=== PATIENT | male | born 1975 | race Asian ===

== ENCOUNTER 2018-02-14 19:43 | Emergency (ER) | payer OTHER ==
[~2018-02-14] VITALS: Ht 180.3 cm; Wt 74.8 kg
[~2018-02-14 19:43] MED LIST: ALPR1TAB2 PO
[2018-02-14 19:49] VITALS: BP 120/75
--- NOTE | 2018-02-14 19:50 | NUR ---
PATIENT AMBULATED TO ER BED 2.
--- NOTE | 2018-02-14 19:52 | NUR ---
PATIENT IS A 42 Y/O MALE WHO PRESENTS TO THE ED C/O FEVER. PT STATES THAT HE HAS BEEN FEELING SICK FOR 10 DAYS. PT REPORTS 10/10 ACHING CHEST PAIN THAT DOES NOT RADIATE. NOTED NON-PRODUCTIVE COUGH, DENIES SOB, N/V/D. PT AAOX4, RR EVEN/UNLABORED. PT REPOSITIONED FOR COMFORT, BED IN LOWEST POSITION. ER MD DR. FAIRBANKS NOTIFIED. WILL CONTINUE TO MONITOR.
[2018-02-14] MEDS ORDERED: ACETAMINOPHEN EXTRA STRENGTH 500 MG TAB PO ONE (19:55)
[2018-02-14] MEDS ORDERED: ACETAMINOPHEN EXTRA STRENGTH 500 MG TAB ONE (19:56)
--- NOTE | 2018-02-14 20:00 | NUR ---
COLLECTED FLU SWAB SAMPLE AND SENT TO LAB.
[2018-02-14] MEDS ORDERED: KETOROLAC 30 MG/ML VIAL IM ONE (21:30)
[2018-02-14] MEDS ORDERED: IBUPROFEN 800 MG TAB ONE (21:41)
--- NOTE | 2018-02-14 21:46 | NUR ---
PO MEDS GIVEN FOR FEVER-NADR AT THIS TIME
--- NOTE | 2018-02-14 22:05 | NUR ---
PATIENT RESTING AT THIS TIME. FAMILY AT BEDSIDE.
[2018-02-14] MEDS ORDERED: IBUPROFEN 800 MG TAB PO ONE (22:15)
[2018-02-14] MEDS ORDERED: NACL 0.9% 2,500 ML IV ONE (22:42)
[2018-02-14 23:58] LABS: HEMATOCRIT 35.6 % (36-52); HEMOGLOBIN 11.8 g/dL (12.0-18.0); MEAN CORPUSCULAR HEMOGLOBIN 28 pg (27-31); MEAN CORPUSCULAR HGB CONC 33 g/dL (33-37); MEAN CORPUSCULAR VOLUME 83.9 fL (80-94); PLATELET COUNT (AUTO) 114 K/uL (140-450); RED BLOOD CELL COUNT(AUTO) 4.25 MIL/uL (4.20-6.10); RED CELL DISTRIBUTION WIDTH 13.5 % (11.6-13.7); WHITE BLOOD COUNT (AUTO) 3.6 K/uL (4.8-10.8)
[2018-02-15] LABS: APPEARANCE,URINE CLEAR (CLEAR); BILIRUBIN,URINE 1+ (NEGATIVE); BLOOD, URINE 2+ (NEGATIVE); COLOR,URINE YELLOW (YELLOW); LEUKOCYTE ESTERASE ,URINE NEGATIVE (NEGATIVE); NITRITE, URINE NEGATIVE (NEGATIVE); UGLUCOSE NEGATIVE (NEGATIVE)
--- NOTE | 2018-02-15 | NUR ---
PATIENT RESTING AT THIS TIME. FAMILY AT BEDSIDE.
[2018-02-15 00:01] LABS: ANION GAP 13.8 (8-16); CREATININE 0.8 mg/dL (0.7-1.3); POTASSIUM 3.8 mmol/L (3.5-5.1)
[2018-02-15 00:07] LABS: ALBUMIN 2.6 g/dL (3.4-5.0); TOTAL BILIRUBIN 0.3 mg/dL (0.0-1.0)
[2018-02-15 00:16] LABS: EOSINOPHILS % (MANUAL) 1 % (0-4); LYMPHOCYTES % (MANUAL) 31 % (20-46); MONOCYTES % (MANUAL) 9 % (5-12)
[2018-02-15 00:19] LABS: PROTHROMBIN TIME 12.1 secs (10.8-13.4)
[2018-02-15 00:28] LABS: RBC,URINE 3-10 (FEW) /HPF (0-5); WBC,URINE 0-5 (RARE) /HPF (0-5)
[2018-02-15] MEDS ORDERED: cefTRIAXone 1,000 MG in LIDOCAINE MPF 1% - **ER/OR** 2.1 ML IM ONE (01:00)
[2018-02-15 01:19] VITALS: BP 100/72
--- NOTE | 2018-02-15 01:19 | NUR ---
Patient discharged with v/s stable. Written and verbal after care instructions given and explained. Patient alert, oriented and verbalized understanding of instructions. Ambulatory with steady gait. All questions addressed prior to discharge. ID band removed. Patient advised to follow up with PMD. Rx of NAPROSYN 500MG, AZITHROMYCIN 250MG AND ACETAMINOPHEN 500MG given. Patient educated on indication of medication including possible reaction and side effects. Opportunity to ask questions provided and answered.
== END 2018-02-15 01:19 | disposition home or self-care (01) ==
LOC: MED 19:43
DX: J20.9 Acute bronchitis, unspecified (principal); R50.9 Fever, unspecified; E11.9 Type 2 diabetes mellitus without complications; Z79.899 Other long term (current) drug therapy
CPT/HCPCS: 36415; 71045; 80053; 81001; 83605; 83690; 85025; 85610; 87040; 87086; 87804; 96360; 96361; 96372; 99285; J0696; J1885; J2001; J7030; 93005

== ENCOUNTER 2018-09-12 12:17 | Inpatient (IN) | payer OTHER ==
[~2018-09-12] VITALS: Ht 180.3 cm; Wt 74.4 kg
[2018-09-12 12:20] VITALS: BP 127/70
--- NOTE | 2018-09-12 12:25 | NUR ---
PT AMBULATES TO BED 8
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
[2018-09-12] MEDS ORDERED: HYDROcodone/APAP 5/325 MG 1 TAB TAB PO ONE (13:15)
[2018-09-12] MEDS ORDERED: ONDANSETRON 4 MG ODT PO ONE (13:15)
[2018-09-12] MEDS ORDERED: KETOROLAC 60 MG/2 ML VIAL IM ONE (13:15)
[2018-09-12] MEDS ORDERED: ACETAMINOPHEN EXTRA STRENGTH 500 MG TAB PO ONE (13:40)
[2018-09-12] MEDS ORDERED: MORPHINE SULFATE 4 MG/ML SYR IVP ONE (14:15)
[2018-09-12] MEDS ORDERED: NACL 0.9% 1,000 ML IV ONE (14:15)
[2018-09-12 14:57] LABS: HEMOGLOBIN 13.6 g/dL (12.0-18.0); MEAN CORPUSCULAR HEMOGLOBIN 28 pg (27-31); MEAN CORPUSCULAR HGB CONC 33 g/dL (33-37); MEAN CORPUSCULAR VOLUME 85.1 fL (80-94); PLATELET COUNT (AUTO) 206 K/uL (140-450); RED BLOOD CELL COUNT(AUTO) 4.82 MIL/uL (4.20-6.10); RED CELL DISTRIBUTION WIDTH 13.2 % (11.6-13.7); WHITE BLOOD COUNT (AUTO) 17.6 K/uL (4.8-10.8)
[2018-09-12 15:16] LABS: EOSINOPHILS % (MANUAL) 2 % (0-4); LYMPHOCYTES % (MANUAL) 8 % (20-46); MONOCYTES % (MANUAL) 5 % (5-12)
[2018-09-12 15:21] LABS: ANION GAP 13.2 (8-16); CARBON DIOXIDE 27.7 mmol/L (21-32); CREATININE 0.9 mg/dL (0.7-1.3); POTASSIUM 3.9 mmol/L (3.5-5.1)
[2018-09-12 15:27] LABS: ALBUMIN 3.5 g/dL (3.4-5.0); TOTAL BILIRUBIN 0.4 mg/dL (0.0-1.0)
--- NOTE | 2018-09-12 15:47 | NUR ---
PT TAKEN TO CT IN NAD[place]
--- NOTE | 2018-09-12 16:01 | NUR ---
pt returned from ct via gurney accompanied by radiology. returned to rm 8 without incident.
--- NOTE | 2018-09-12 17:00 | NUR ---
er md irwin by bedside performing lumbar puncture; patient tolerating well
[2018-09-12] MEDS ORDERED: cefTRIAXone 1,000 MG VIAL ONE (17:24)
--- NOTE | 2018-09-12 17:45 | NUR ---
IV ABX INFUSING WITHOUT DIFFICULTLY; AWIAITING LAB RESULTS; VSS; WILL CONTINUE TO MONITOR.
[2018-09-12 18:15] LABS: CSF GLUCOSE 75 mg/dL (40-70)
[2018-09-12 18:26] LABS: CSF PROTEIN 57.7 mg/dL (15-45)
[2018-09-12] MEDS ORDERED: KETOROLAC 30 MG/ML VIAL IVP ONE (18:45)
[2018-09-12 19:31] VITALS: BP 127/69
--- NOTE | 2018-09-12 19:31 | NUR ---
RECEIVED PT FROM ER NANCY ZUNIGA PT ALERT, OX 4 WITH IVF ON THE LEFT HAND, INFUSING WELL, PATENT.TELE PT. PT NO COMPLAINTS HEADACHE AT THIS TIME. BED AT LOWEST POSITION. POC REVIEWED WITH PT. CALL LIGHT WITHIN REACH. WILL CONTINUE TO MIGUE
--- NOTE | 2018-09-12 19:45 | NUR ---
Patient will be admitted to care of DR. ADAMES. Admited to TELE. Will go to room 120A. Belongings list completed. Report to LESLIE JACKSON.
[2018-09-12 19:59] LABS: APPEARANCE,URINE CLEAR (CLEAR); COLOR,URINE YELLOW (YELLOW)
[2018-09-12 20:00] LABS: BILIRUBIN,URINE NEGATIVE (NEGATIVE); BLOOD, URINE NEGATIVE (NEGATIVE); PH,URINE 7.5 (5.0-9.0); UGLUCOSE NEGATIVE (NEGATIVE)
[2018-09-12 20:01] LABS: LEUKOCYTE ESTERASE ,URINE NEGATIVE (NEGATIVE); NITRITE, URINE NEGATIVE (NEGATIVE)
[2018-09-12] MEDS ORDERED: KETOROLAC 15 MG/ML VIAL IVP PRN (22:05)
[2018-09-12] MEDS ORDERED: ONDANSETRON 4 MG/5 ML ORASYR PO PRN (22:05)
[2018-09-12] MEDS ORDERED: ACETAMINOPHEN 325 MG TAB PO PRN (22:25)
[2018-09-12] MEDS ORDERED: KETOROLAC 15 MG/ML VIAL ONE (22:29)
--- NOTE | 2018-09-12 22:29 | NUR ---
DR. VILLANUEVA AWARE OF 08/20 HEADACHE VERBALIZED BY PATIENT. STILL ORDERED TORADOL 15 MG FOR MODERATE PAIN
[2018-09-12] MEDS ORDERED: ONDANSETRON 4 MG TAB PO PRN (22:45)
[2018-09-12] MEDS ORDERED: DOXYCYCLINE 100 MG in DEXTROSE 5% 100 ML IV SCH (23:00)
[2018-09-13] VITALS: BP 125/65
--- NOTE | 2018-09-13 01:56 | NUR ---
PT SLEEPING NOW. NOT IN RESPIRATORY DISTRESS. NO SIGNS OF PAIN AT THIS TIME.
--- NOTE | 2018-09-13 01:57 | NUR ---
PT ON BED SLEEPING, NO COMPLAINTS OF HEADACHE AT THIS TIME. NO COMPLAINTS OF NAUSEA , NO FEVER NOTED.NO VOMITING. WILL CONTINUE TO MONITOR
--- NOTE | 2018-09-13 02:00 | NUR ---
CALLED [facility]. ASK TELEGRAPHIC INSTRUMENT SUPERVISOR FOR A CALL BACK. STILL NO REPLY
[2018-09-13] MEDS: KETOROLAC 15 MG/ML VIAL IVP PRN ×3 (03:22→17:32)
[2018-09-13 04:00] VITALS: BP 126/65
--- NOTE | 2018-09-13 06:21 | NUR ---
CALLED [facility] TRUNKLINE AND VENDING MACHINE ASSEMBLER SAID DR. NAZARIO IS COMBUSTION ANALYST . NO DIET FOR PATIENT YET, WELL MAIN IVF. WILL ENDORSE TO THE AM SHIFT
[2018-09-13 07:00] LABS: BASOPHILS % (AUTO) 0.2 % (0.0-2.0); EOSINOPHILS # (AUTO) 0.1 K/uL (0-0.4); EOSINOPHILS % (AUTO) 0.5 % (0.0-4.0); HEMATOCRIT 41.9 % (36-52); HEMOGLOBIN 13.7 g/dL (12.0-18.0); LYMPHOCYTES # (AUTO) 2.4 K/uL (2.0-11.5); LYMPHOCYTES % (AUTO) 18.3 % (20.5-51.1); MEAN CORPUSCULAR HEMOGLOBIN 28 pg (27-31); MEAN CORPUSCULAR HGB CONC 33 g/dL (33-37); MEAN CORPUSCULAR VOLUME 86.1 fL (80-94); MONOCYTES # (AUTO) 0.9 K/uL (0.8-1.0); MONOCYTES % (AUTO) 7.2 % (1.7-9.3); NEUTROPHILS # (AUTO) 9.6 K/uL (1.8-7.7); NEUTROPHILS % (AUTO) 73.8 % (42.2-75.2); PLATELET COUNT (AUTO) 215 K/uL (140-450); RED BLOOD CELL COUNT(AUTO) 4.86 MIL/uL (4.20-6.10)
--- NOTE | 2018-09-13 07:25 | NUR ---
RECEIVED REPORT FROM PM SHIFT NURSE. PT AWAKE, C/O / HEADACHE. NOTED WITH IRRITABILITY, & FACIAL GRIMACING. INFORMED PT HE IS NOT YET DUE FOR TORADAL DOSE. ROOM KEPT DARK & QUIET FOR COMFORT. AT BEDSIDE. CALL LIGHT WITHIN REACH. DR ADAMES PAGEEmily & AWAITING CALL BACK.
[2018-09-13] MEDS ORDERED: MORPHINE SULFATE 4 MG/ML SYR IVP PRN (07:45)
--- NOTE | 2018-09-13 07:50 | NUR ---
ENDORSED TO AM SHIFT NURSE PT. PT C/O OF 08/20 PAIN DURING OUR ENDORSEMENT. AM SHIFT AWARE OF IVF FLUID AND DIET FOR WHICH HAS NOT CALLED BACK YET.
[2018-09-13 08:00] VITALS: BP 121/78
[2018-09-13 08:46] LABS: ANION GAP 14.8 (8-16); CARBON DIOXIDE 26.6 mmol/L (21-32); POTASSIUM 4.4 mmol/L (3.5-5.1)
[2018-09-13 08:47] LABS: ALBUMIN 3.1 g/dL (3.4-5.0); CREATININE 0.9 mg/dL (0.7-1.3); TOTAL BILIRUBIN 0.4 mg/dL (0.0-1.0)
--- NOTE | 2018-09-13 08:58 | NUR ---
ZOFRAN GIVEN FOR NAUSEA WITH X1 EPISODE OF SMALL AMT EMESIS, POST MORPHINE ADMINISTRATION. ICE CHIPS PROVIDED FOR COMFORT. ROOM KEPT DIM & QUIET. ADVISED BEDREST, PT VERBALIZED UNDERSTANDING. CALL LIGHT WITHIN REACH. AT BEDSIDE.
[2018-09-13] MEDS: NACL 0.9% 1,000 ML IV SCH ×2 (08:59→18:53)
[2018-09-13] MEDS: DOXYCYCLINE 100 MG in DEXTROSE 5% 100 ML IV SCH ×2 (09:32→21:08)
--- NOTE | 2018-09-13 09:58 | NUR ---
PT AWAKE BUT WITH EYES CLOSED. VERBALLY RESPONSIVE. NO C/O NAUSEA AT THIS TIME. ROOM KEPT DIM & QUIET. AT BEDSIDE. CALL LIGHT WITHIN REACH. LEFT WRIST IV INTACT & ASYMPTOMATIC.
--- NOTE | 2018-09-13 11:29 | NUR ---
PATIENT HAS BEEN SCREENED AND CATEGORIZED MODERATE NUTRITION RISK. PATIENT WILL BE SEEN WITHIN 3-5 DAYS OF ADMISSION. 09/15/18 09/17/18 ONESIMO VARGAS MBA, RD
[2018-09-13 12:00] VITALS: BP 107/72
--- NOTE | 2018-09-13 14:17 | NUR ---
PT SITTING UP IN BED AT THIS TIME. C/O 01/18 HEADACHE, BUT IS CURRENTLY TOLERABLE. CALL LIGHT WITHIN REACH. REMAINS AT BEDSIDE.
[2018-09-13] MEDS ORDERED: INSULIN LISPRO SLIDING SCALE 100 UNITS/ML VIAL SUBQ PRN (14:20)
[2018-09-13] MEDS ORDERED: ALPRAZolam 0.5 MG TAB PO PRN (14:25)
--- NOTE | 2018-09-13 14:45 | NUR ---
DR ADAMES AT BEDSIDE ASSESSING PT.
[2018-09-13 16:00] VITALS: BP 117/70
--- NOTE | 2018-09-13 16:00 | NUR ---
PT AWAKE, VERBALLY RESPONSIVE. STATES HE STILL HAS HEADACHE BUT IS CURRENTLY TOLERABLE. REFUSED PAIN MEDS WHEN OFFERED. AT BEDSIDE, ENCOURAGED TO MASSAGE PT'S HEAD LIGHTLY. PT & VERBALIZED AGREEMENT. ROOM KEPT DIM & QUIET. CALL LIGHT WITHIN REACH.
[2018-09-13] MEDS: BLOOD GLUCOSE MONITORING 1 DEV DEV FS SCH ×2 (16:14→20:57)
--- NOTE | 2018-09-13 18:02 | NUR ---
PT IN HIGH FOWLERS IN BED, STATES HEADACHE IS TOLERABLE AT THIS TIME. NO SIGNS OF DISTRESS. CALL LIGHT WITHIN REACH.
--- NOTE | 2018-09-13 19:05 | NUR ---
REPORT GIVEN TO PM SHIFT NURSE SUMMER.
--- NOTE | 2018-09-13 19:05 | NUR ---
RECEIVED BEDSIDE REPORT FROM MANUEL BLUM. PATIENT IN BED, FAMILY AT BEDSIDE, IV IN LEFT WRIST 20G INFUSING NS AT 100, DRESSING IS CLEAN AND INTACT. ALERT AND ORIENTATED X4, ABLE TO FOLLOW COMMANDS. BANDAGE APPLIED TO BACK, NO SIGNS OF LEAKAGE, UPDATED BOARD EXPLAINED PLAN OF CARE, WILL CONTINUE TO MONITOR.
[2018-09-13 20:00] VITALS: BP 110/75
--- NOTE | 2018-09-13 21:00 | NUR ---
DUE MEDICATION GIVEN PATIENT TOLERATED WELL, BG 200, D/C INSULIN COVERAGE. WILL CONTINUE TO MONITOR. V/S TAKEN ALL WITHIN BASELINE, DOES NOT PAIN PAIN MEDICATION AT THIS TIME FOR RILEY, WILL CONTINUE TO MONITOR.
--- NOTE | 2018-09-13 23:30 | NUR ---
PATIENT ASLEEP IN BED NO SIGNS OF DISTRESS, CALL LIGHT WITHIN REACH.
[2018-09-14] VITALS: BP 109/64
--- NOTE | 2018-09-14 00:30 | NUR ---
V/S TAKEN, ALL WITHIN BASELINE WILL CONTINUE TO MONITOR.
--- NOTE | 2018-09-14 03:30 | NUR ---
V/S TAKEN ALL WITHIN BASELINE WILL CONTINUE TO MONITOR.
[2018-09-14 04:00] VITALS: BP 111/60
[2018-09-14] MEDS: KETOROLAC 15 MG/ML VIAL IVP PRN (04:58)
--- NOTE | 2018-09-14 04:58 | NUR ---
PATIENT C/O PAIN 04/20, RILEY, IS IRRITATED, MEDICATED ACCORDING TO MD ORDER.
[2018-09-14] MEDS: NACL 0.9% 1,000 ML IV SCH ×3 (05:00→23:39)
[2018-09-14] MEDS: BLOOD GLUCOSE MONITORING 1 DEV DEV FS SCH ×4 (05:02→20:36)
[2018-09-14 07:14] LABS: BASOPHILS % (AUTO) 0.2 % (0.0-2.0); EOSINOPHILS # (AUTO) 0.1 K/uL (0-0.4); EOSINOPHILS % (AUTO) 1.1 % (0.0-4.0); HEMATOCRIT 38.3 % (36-52); HEMOGLOBIN 12.3 g/dL (12.0-18.0); LYMPHOCYTES % (AUTO) 23.6 % (20.5-51.1); MEAN CORPUSCULAR HEMOGLOBIN 28 pg (27-31); MEAN CORPUSCULAR HGB CONC 32 g/dL (33-37); MEAN CORPUSCULAR VOLUME 85.4 fL (80-94); MONOCYTES # (AUTO) 0.8 K/uL (0.8-1.0); MONOCYTES % (AUTO) 6.5 % (1.7-9.3); NEUTROPHILS # (AUTO) 8.6 K/uL (1.8-7.7); NEUTROPHILS % (AUTO) 68.6 % (42.2-75.2); PLATELET COUNT (AUTO) 241 K/uL (140-450); RED BLOOD CELL COUNT(AUTO) 4.48 MIL/uL (4.20-6.10); WHITE BLOOD COUNT (AUTO) 12.6 K/uL (4.8-10.8)
[2018-09-14 07:27] LABS: ALBUMIN 2.7 g/dL (3.4-5.0); ANION GAP 11.5 (8-16); CARBON DIOXIDE 28.6 mmol/L (21-32); CREATININE 0.9 mg/dL (0.7-1.3); POTASSIUM 4.1 mmol/L (3.5-5.1); TOTAL BILIRUBIN 0.3 mg/dL (0.0-1.0)
--- NOTE | 2018-09-14 07:32 | NUR ---
ENDORSED PATIENT TO DAY SHIFT NURSE PATIENT.
--- NOTE | 2018-09-14 07:33 | NUR ---
RECEIVED REPORT FROM PM SHIFT NURSE. PT AWAKE IN BED, DENIES ANY PAIN OR DISCOMFORT AT THIS TIME. LEFT WRIST IV INTACT & ASYMPTOMATIC. CALL LIGHT WITHIN REACH.
[2018-09-14 08:00] VITALS: BP 111/67
[2018-09-14] MEDS: DOXYCYCLINE 100 MG in DEXTROSE 5% 100 ML IV SCH ×2 (08:36→20:32)
--- NOTE | 2018-09-14 09:30 | NUR ---
PT C/O BURNING SENSATION TO LEFT WRIST IV SITE FROM VIBRAMYCIN INFUSION. SITE INTACT, NO REDNESS/SWELLING. RATE DECREASED FROM 100ML/HR TO 50ML/HR. PT VERBALIZED FEELING BETTER. CALL LIGHT WITHIN REACH & ENCOURAGE PT TO CALL NURSE FOR ASSISTANCE PRN. VERBALIZED UNDERSTANDING.
--- NOTE | 2018-09-14 11:30 | NUR ---
PT IN HIGH FOWLERS IN BED. C/O 01/18 HEADACHE BUT STATES IT IS TOLERABLE AT THIS TIME. REFUSED PAIN MEDS WHEN OFFERED. LEFT WRIST IV INTACT & ASYMPTOMATIC. AT BEDSIDE. CALL LIGHT WITHIN REACH.
[2018-09-14 12:00] VITALS: BP 111/67
--- NOTE | 2018-09-14 13:15 | NUR ---
Pt asleep at this time. Respirations even & unlabored. FLACC 0. at bedside. Left wrist IV intact & asymptomatic. Call light within reach.
--- NOTE | 2018-09-14 14:30 | NUR ---
Dr Issa at bedside assessing pt.
[2018-09-14] MEDS ORDERED: PSYLLIUM 12.2 GM/PKT PO PRN (15:15)
--- NOTE | 2018-09-14 15:24 | NUR ---
METAMUCIL ADMINISTERED FOR CONSTIPATION. PER PT, NO BM SINCE ADMISSION. PT TEACHING PROVIDED TO INCREASE PO FLUID INTAKE & PHYSICAL ACTIVITY FOR BOWEL MANAGEMENT. VERBALIZED UNDERSTANDING.
[2018-09-14 16:00] VITALS: BP 120/71
--- NOTE | 2018-09-14 18:31 | NUR ---
PT SITTING UP IN BED EATING DINNER. STATES HEADACHE AT TOLERABLE LEVEL AT THIS TIME. NO BM NOTED. ENCOURAGE PT TO DRINK PLENTY OF FLUIDS & INCREASE PHYSICAL ACTIVITY. VERBALIZED UNDERSTANDING & AGREE WITH PLAN OF CARE. CALL LIGHT WITHIN REACH.
--- NOTE | 2018-09-14 19:30 | NUR ---
RECEIVED REPORT FROM DAY SHIFT RN, FOR CONTINUITY OF CARE.PT IS A/OX4, ON ROOM AIR. PT IS ABLE TO MAKE NEEDS KNOWN, ABLE TO FOLLOW COMMANDS. PT BREATHS EQUAL AND UNLABORED. PT AMBULATES WITH STEADY GAIT. PT HAS A 22G IV TO RIGHT HAND, ASYMPTOMATIC AND INTACT. DISCUSSED PLAN OF CARE WITH PT, PT VERBALIZED UNDERSTANDING. VITAL SIGNS WITHIN NORMAL LIMITS, COMPLAINS OF HEADACHE BUT STATES IT IT TOLERABLE AND DOES NOT WANT ANY PAIN MEDICATION. PT STABLE, NO SIGNS OF DISTRESS NOTED AT THIS TIME. BED IN LOWEST POSITION, BED ALARM ON. CALL LIGHT WITHIN REACH, WILL CONTINUE TO MONITOR.
[2018-09-14 20:00] VITALS: BP 121/81
[2018-09-14] MEDS: DOCUSATE SODIUM 100 MG GELCAP PO SCH (20:31)
--- NOTE | 2018-09-14 20:40 | NUR ---
ADMINISTERED SCHEDULED MEDICATIONS, PT TOLERATED WELL. CHECKED BLOOD SUGAR WELL IT IS 149.
--- NOTE | 2018-09-14 22:45 | NUR ---
PT NOW RESTING IN BED. NO SIGNS OF DISTRESS NOTED AT THIS TIME. BED IN LOWEST POSITION, BED ALARM ON. CALL LIGHT WITHIN REACH, WILL CONTINUE TO MONITOR.
[2018-09-15] VITALS: BP 116/74
--- NOTE | 2018-09-15 | NUR ---
VITAL SIGNS WITHIN NORMAL LIMITS, DENIES PAIN. PT STABLE, NO SIGNS OF DISTRESS NOTED AT THIS TIME. BED IN LOWEST POSITION, BED ALARM ON. CALL LIGHT WITHIN REACH, WILL CONTINUE TO MONITOR.
--- NOTE | 2018-09-15 02:15 | NUR ---
EMPTIED 900ML OF URINE FROM URINAL.
[2018-09-15 04:00] VITALS: BP 120/76
[2018-09-15] MEDS: BLOOD GLUCOSE MONITORING 1 DEV DEV FS SCH ×2 (06:23→12:23)
--- NOTE | 2018-09-15 07:25 | NUR ---
ENDORSED PT TO DAY SHIFT RN CHEN FOR CONTINUITY OF CARE. PT IN STABLE CONDITION.
--- NOTE | 2018-09-15 07:29 | NUR ---
RECEIVED BEDSIDE REPORT FROM SELF PROPELLED DREDGE OPERATOR RN. PT RESTING IN BED, PT AOX4. LUNGS CTA. HEART RHYTHM REGULAR. DENIES PAIN AND DISCOMFORT AT THIS TIME. SKIN INTACT. PRIMARILY [place] SPEAKING, BUT ALSO SPEAKS A[place]QUATE [place]GH[place] TO MAKE NEEDS KNOWN. PER SELF PROPELLED DREDGE OPERATOR, PT AMBULATORY WITH STEADY GAIT. IV SITE PATENT AND ASYMPTOMATIC, INFUSING IVF PER MD ORDERS. UPDATED BOARD AND INTRODUCED SELF. DISCUSSED POC WITH PATIENT. PT VERBALIZED COMPLETE UNDERSTANDING. ALL SAFETY PRECAUTIONS IN PLACE, WILL CONTINUE TO MONITOR.
[2018-09-15 07:56] LABS: BASOPHILS % (AUTO) 0.4 % (0.0-2.0); EOSINOPHILS # (AUTO) 0.2 K/uL (0-0.4); EOSINOPHILS % (AUTO) 1.9 % (0.0-4.0); HEMATOCRIT 41.4 % (36-52); HEMOGLOBIN 13.7 g/dL (12.0-18.0); LYMPHOCYTES % (AUTO) 29.4 % (20.5-51.1); MEAN CORPUSCULAR HEMOGLOBIN 28 pg (27-31); MEAN CORPUSCULAR HGB CONC 33 g/dL (33-37); MEAN CORPUSCULAR VOLUME 84.8 fL (80-94); MONOCYTES # (AUTO) 0.7 K/uL (0.8-1.0); MONOCYTES % (AUTO) 7.1 % (1.7-9.3); NEUTROPHILS # (AUTO) 6.2 K/uL (1.8-7.7); NEUTROPHILS % (AUTO) 61.2 % (42.2-75.2); PLATELET COUNT (AUTO) 282 K/uL (140-450); RED BLOOD CELL COUNT(AUTO) 4.88 MIL/uL (4.20-6.10); RED CELL DISTRIBUTION WIDTH 12.8 % (11.6-13.7); WHITE BLOOD COUNT (AUTO) 10.1 K/uL (4.8-10.8)
[2018-09-15 08:00] VITALS: BP 115/80
--- NOTE | 2018-09-15 08:03 | NUR ---
AND OTHER FAMILY MEMBERS AT BEDSIDE.
[2018-09-15 08:29] LABS: ANION GAP 11.6 (8-16); CARBON DIOXIDE 29.5 mmol/L (21-32); CREATININE 0.9 mg/dL (0.7-1.3); POTASSIUM 4.1 mmol/L (3.5-5.1); TOTAL BILIRUBIN 0.3 mg/dL (0.0-1.0)
[2018-09-15] MEDS: DOCUSATE SODIUM 100 MG GELCAP PO SCH (09:39)
[2018-09-15] MEDS: DOXYCYCLINE 100 MG in DEXTROSE 5% 100 ML IV SCH (09:40)
[2018-09-15] MEDS: NACL 0.9% 1,000 ML IV SCH (09:40)
--- NOTE | 2018-09-15 10:51 | NUR ---
PT INQUIRING ABOUT PLAN OF CARE. DISCUSSED POC TODAY WITH PT AND AT BEDSIDE. PT VERBALIZED COMPLETE UNDERSTANDING.
[2018-09-15 12:00] VITALS: BP 117/71
--- NOTE | 2018-09-15 12:24 | NUR ---
PT C/O 2/10 MILD HEADACHE BUT ALSO STATES "IT'S NOT BAD. I DON'T NEED MEDICATION NOW. IT IS A LOT BETTER TODAY". WILL CONTINUE TO MONITOR.
[2018-09-15] MEDS ORDERED: LEVO750T2 PO (14:38)
[2018-09-15] MEDS ORDERED: DOXY100C9 PO (14:40)
--- NOTE | 2018-09-15 14:45 | NUR ---
NOTIFIED PT THAT DR. ADAMES HAS PUT IN D/C ORDER. PT VERBALIZED UNDERSTANDING.
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
--- NOTE | 2018-09-15 15:20 | NUR ---
PT IS PRIMARILY [place] SPEAKING BUT PREFERS FAMILY MEMBER AT BEDSIDE TO TRANSLATE. DISCHARGE PAPERWORK, INCLUDING NEW PRESCRIPTIONS AND INSTRUCTIONS TO FOLLOW UP WITH PCP, GIVEN TO PATIENT. NEW PRESCRIPTION MED TEACHING GIVEN AND MED RECONCILIATION TEACHING GIVEN. PT VERBALIZED COMPLETE UNDERSTANDING OF ALL D/C TEACHING. ID BANDS REMOVED. IV SITE REMOVED WITH MINIMAL BLOOD LOSS AND LUMEN COMPLETELY INTACT. ALL PERSONAL BELONGINGS ARE WITH PATIENT. PT LEFT UNIT WITH FAMILY MEMBER AND WILL GO HOME VIA PRIVATE VEHICLE. PT IN STABLE CONDITION.
== END 2018-09-15 15:20 | disposition home or self-care (01) | DRG 723 ==
LOC: MED 12:17 → MTU 19:06
PROVIDERS: ADMIT Hospitalist; ATTEND Hospitalist
PROC: 009U3ZX Drainage of Spinal Canal, Percutaneous Approach, Diagnostic (ICD-10-PCS; principal; 2018-09-12)
DX: B34.9 Viral infection, unspecified (principal); D72.825 Bandemia; E11.9 Type 2 diabetes mellitus without complications; R50.9 Fever, unspecified; F17.210 Nicotine dependence, cigarettes, uncomplicated; R51 Headache
CPT/HCPCS: 36415; 70450; 71045; 80053; 81003; 82948; 83605; 84157; 85025; 86790; 87040; 87081; 87804; 96361; 96365; 96372; 96375; 99285; J0696; J1815; J1885; J2270; J3490; J7030; J7060; Q0162